=== PATIENT | female | born 1930 | race Caucasian/White ===

== ENCOUNTER → 2018-01-21 | Outpatient (CLI) | payer OTHER | END | disposition home or self-care (01) | LOC: WOUND 13:07 | PROVIDERS: ATTEND Podiatrist Foot & Ankle Surgery | DX: S81.811A Laceration without foreign body, right lower leg, initial encounter (principal); I10 Essential (primary) hypertension; F32.9 Major depressive disorder, single episode, unspecified; E03.9 Hypothyroidism, unspecified; Z90.710 Acquired absence of both cervix and uterus; Z87.891 Personal history of nicotine dependence; Z86.711 Personal history of pulmonary embolism; X58.XXXA Exposure to other specified factors, initial encounter; Y93.89 Activity, other specified; Y92.89 Other specified places as the place of occurrence of the external cause; Y99.8 Other external cause status | CPT/HCPCS: 11042; 99215 ==

== ENCOUNTER → 2018-01-28 | Outpatient (CLI) | payer OTHER | END | disposition home or self-care (01) | LOC: WOUND 13:03 | PROVIDERS: ATTEND Podiatrist Foot & Ankle Surgery | DX: S81.812A Laceration without foreign body, left lower leg, initial encounter (principal); S81.811D Laceration without foreign body, right lower leg, subsequent encounter; I10 Essential (primary) hypertension; F32.9 Major depressive disorder, single episode, unspecified; E03.9 Hypothyroidism, unspecified; Z90.710 Acquired absence of both cervix and uterus; Z87.891 Personal history of nicotine dependence; Z86.711 Personal history of pulmonary embolism; X58.XXXA Exposure to other specified factors, initial encounter; X58.XXXD Exposure to other specified factors, subsequent encounter; Y93.89 Activity, other specified; Y92.89 Other specified places as the place of occurrence of the external cause; Y99.8 Other external cause status | CPT/HCPCS: 11042 ==

== ENCOUNTER → 2018-02-04 | Outpatient (CLI) | payer OTHER | END | disposition home or self-care (01) | LOC: WOUND 13:22 | PROVIDERS: ATTEND Podiatrist Foot & Ankle Surgery | DX: L97.312 Non-pressure chronic ulcer of right ankle with fat layer exposed (principal); L97.221 Non-pressure chronic ulcer of left calf limited to breakdown of skin; I10 Essential (primary) hypertension; F32.9 Major depressive disorder, single episode, unspecified; E03.9 Hypothyroidism, unspecified; Z86.711 Personal history of pulmonary embolism; Z87.891 Personal history of nicotine dependence; Z90.710 Acquired absence of both cervix and uterus; X58.XXXD Exposure to other specified factors, subsequent encounter | CPT/HCPCS: 11042; 97597 ==

== ENCOUNTER → 2018-02-11 | Outpatient (CLI) | payer OTHER | END | disposition home or self-care (01) | LOC: WOUND 14:34 | PROVIDERS: ATTEND Podiatrist Foot & Ankle Surgery | DX: L97.312 Non-pressure chronic ulcer of right ankle with fat layer exposed (principal); L97.221 Non-pressure chronic ulcer of left calf limited to breakdown of skin; I10 Essential (primary) hypertension; F32.9 Major depressive disorder, single episode, unspecified; E03.9 Hypothyroidism, unspecified; Z90.710 Acquired absence of both cervix and uterus; Z87.891 Personal history of nicotine dependence; Z86.711 Personal history of pulmonary embolism | CPT/HCPCS: 11042; 97597 ==

== ENCOUNTER → 2018-02-18 | Outpatient (CLI) | payer OTHER | END | disposition home or self-care (01) | LOC: WOUND 13:00 | PROVIDERS: ATTEND Podiatrist Foot & Ankle Surgery | DX: L97.312 Non-pressure chronic ulcer of right ankle with fat layer exposed (principal); L97.221 Non-pressure chronic ulcer of left calf limited to breakdown of skin; I10 Essential (primary) hypertension; F32.9 Major depressive disorder, single episode, unspecified; E03.9 Hypothyroidism, unspecified; Z90.710 Acquired absence of both cervix and uterus; Z87.891 Personal history of nicotine dependence; Z86.711 Personal history of pulmonary embolism | CPT/HCPCS: 97597 ==

== ENCOUNTER → 2018-02-25 | Outpatient (CLI) | payer OTHER | END | disposition home or self-care (01) | LOC: WOUND 13:10 | PROVIDERS: ATTEND Podiatrist Foot & Ankle Surgery | DX: L97.312 Non-pressure chronic ulcer of right ankle with fat layer exposed (principal); L97.221 Non-pressure chronic ulcer of left calf limited to breakdown of skin; I10 Essential (primary) hypertension; F32.9 Major depressive disorder, single episode, unspecified; E03.9 Hypothyroidism, unspecified; Z90.710 Acquired absence of both cervix and uterus; Z86.711 Personal history of pulmonary embolism; Z87.891 Personal history of nicotine dependence | CPT/HCPCS: 11042; 97597 ==

== ENCOUNTER → 2018-03-04 | Outpatient (CLI) | payer OTHER | END | disposition home or self-care (01) | LOC: WOUND 12:42 | PROVIDERS: ATTEND Podiatrist Foot & Ankle Surgery | DX: L97.312 Non-pressure chronic ulcer of right ankle with fat layer exposed (principal); L97.221 Non-pressure chronic ulcer of left calf limited to breakdown of skin; I10 Essential (primary) hypertension; F32.9 Major depressive disorder, single episode, unspecified; E03.9 Hypothyroidism, unspecified; Z86.711 Personal history of pulmonary embolism; Z87.891 Personal history of nicotine dependence; Z90.710 Acquired absence of both cervix and uterus | CPT/HCPCS: 99213 ==

== ENCOUNTER → 2018-03-11 | Outpatient (CLI) | payer OTHER | END | disposition home or self-care (01) | LOC: WOUND 13:16 | PROVIDERS: ATTEND Podiatrist Foot & Ankle Surgery | DX: L97.312 Non-pressure chronic ulcer of right ankle with fat layer exposed (principal); L97.221 Non-pressure chronic ulcer of left calf limited to breakdown of skin; I10 Essential (primary) hypertension; F32.9 Major depressive disorder, single episode, unspecified; E03.9 Hypothyroidism, unspecified; Z87.891 Personal history of nicotine dependence; Z86.711 Personal history of pulmonary embolism | CPT/HCPCS: 99214 ==

== ENCOUNTER → 2018-03-18 | Outpatient (CLI) | payer OTHER | END | disposition home or self-care (01) | LOC: WOUND 12:58 | PROVIDERS: ATTEND Podiatrist Foot & Ankle Surgery | DX: L97.318 Non-pressure chronic ulcer of right ankle with other specified severity (principal); I10 Essential (primary) hypertension; F32.9 Major depressive disorder, single episode, unspecified; E03.9 Hypothyroidism, unspecified; Z87.891 Personal history of nicotine dependence; Z86.711 Personal history of pulmonary embolism; Z90.710 Acquired absence of both cervix and uterus | CPT/HCPCS: 99214 ==

== ENCOUNTER 2018-08-17 14:18 | Inpatient (IN) | payer MEDICARE, OTHER ==
[~2018-08-17] VITALS: Ht 157.5 cm; Wt 31.5 kg
--- NOTE | 2018-08-17 14:40 | NUR ---
FAMILY AT BEDSIDE. PT EXPERIENCING GENERALIZED WEAKNESS, COUGH AND FALL THIS MORNING. WHEN OXYGEN SATURATION CHECKED AT HOME AND BY MEDICS, 85-88 ON HOME O2.
[2018-08-17] MEDS ORDERED: SODIUM CHLORIDE FLUSH 10ML SYR IVF ONE (15:00)
[2018-08-17 15:04] LABS: BASOPHILS # (AUTO) 0.01 x10^3/uL (0-0.1); BASOPHILS % (AUTO) 0 % (0-1); EOSINOPHILS # (AUTO) 0.01 x10^3/uL (0-0.4); EOSINOPHILS % (AUTO) 0 % (1-7); LYMPHOCYTES # (AUTO) 0.54 x10^3/uL (1-3.4); LYMPHOCYTES % (AUTO) 7 % (22-44); MD NO; MEAN CORPUSCULAR HGB CONC 33.1 g/dL (32.4-35.8); MEAN CORPUSCULAR VOLUME 87.7 fL (80-100); MEAN PLATELET VOLUME 7.5 fL (7.4-10.4); MONOCYTES # (AUTO) 0.48 x10^3/uL (0.2-0.8); MONOCYTES % (AUTO) 7 % (2-9); NEUTROPHILS # (AUTO) 6.22 x10^3/uL (1.8-6.8); NEUTROPHILS % (AUTO) 86 % (42-75); PLATELET COUNT 339 x10^3/uL (130-400); RED BLOOD COUNT 3.49 x10^6/uL (3.82-5.3); RED CELL DISTRIBUTION WIDTH 17.4 % (9.6-15.2)
[2018-08-17 15:16] LABS: ALBUMIN 2.9 g/dL (3.4-5.0); ANION GAP 5 mmol/L (5-15); CALCIUM 8.6 mg/dL (8.5-10.1); CHLORIDE 104 mmol/L (98-107)
[2018-08-17 15:21] LABS: TROPONIN I < 0.015 ng/mL (0.000-0.045)
[2018-08-17] MEDS ORDERED: ALBUTEROL/IPRATROPIUM 2.5MG/0.5MG, 3 ML NPPB ONE (15:30)
[2018-08-17] MEDS ORDERED: FLUO20CA8 PO (16:23)
[2018-08-17] MEDS ORDERED: AMLO10TA8 PO (16:23)
[2018-08-17] MEDS ORDERED: [UNRECOGNIZED DRUG - OTHER] OP (16:23)
[2018-08-17] MEDS ORDERED: TRAM50TA2 PO (16:23)
[2018-08-17] MEDS ORDERED: ERGO2000 PO (16:23)
[2018-08-17] MEDS ORDERED: AMIT10TA PO (16:23)
[2018-08-17] MEDS ORDERED: BUDE3CAP6 PO (16:23)
[2018-08-17] MEDS ORDERED: CARV3.122 PO (16:23)
[2018-08-17] MEDS ORDERED: GABA-827 PO (16:23)
[2018-08-17] MEDS ORDERED: APIX2.5T PO (16:23)
[2018-08-17] MEDS ORDERED: BUSP7.5T3 PO (16:23)
[2018-08-17] MEDS ORDERED: LEVO75TA PO (16:23)
--- NOTE | 2018-08-17 16:24 | NUR ---
TASK RN: PT MEDICTED PER EMAR. PT MED REC COMPLETE.
--- NOTE | 2018-08-17 16:25 | NUR ---
THIS RN COMPLETED MED REC UNDER WRONG USER. MED REC COMPLETED BY THIS RN.
--- NOTE | 2018-08-17 16:25 | NUR ---
TASK RN: PT MEDICTED PER EMAR. PT MED REC COMPLETE.
--- NOTE | 2018-08-17 16:52 | NUR ---
HOSPITALIST AT BEDSIDE
[2018-08-17] MEDS ORDERED: ONDANSETRON 2MG/ML, 2ML IVPush PRN (17:00)
[2018-08-17] MEDS ORDERED: hydrALAzine 20 MG/ML, 1ML IVPush PRN (17:00)
[2018-08-17] MEDS ORDERED: ACETAMINOPHEN 325 MG TABLET PO PRN (17:00)
[2018-08-17] MEDS ORDERED: NITROGLYCERIN 0.4 MG BOTTLE (25 TABS) SL PRN (17:00)
[2018-08-17] MEDS ORDERED: DOCUSATE 100 MG CAPSULE PO PRN (17:00)
[2018-08-17] MEDS ORDERED: AZITHROMYCIN 500 MG TABLET ONE (17:02)
[2018-08-17] MEDS: AZITHROMYCIN 500 MG TABLET PO SCH (17:04)
--- NOTE | 2018-08-17 17:25 | NUR ---
UOB TO COMMODE WITH ASSISTANCE. DAUGHTER REMAINS AT BEDSIDE. PT'S BREATHING EVEN AND UNLABORED
[2018-08-17 17:26] LABS: ABSOLUTE RETICS # 0.035 x10^6/uL (0.5-2.5); RED BLOOD COUNT 3.5 x10^6/uL (3.82-5.3); RETICULOCYTE COUNT % 0.99 % (0.5-1.5)
--- NOTE | 2018-08-17 17:41 | NUR ---
REPORT TO MANNY XIAO
[2018-08-17 20:00] VITALS: BP 139/61
[2018-08-17] MEDS ORDERED: LORazepam 0.5MG TABLET PO ONE (20:30)
[2018-08-17] MEDS: GUAIFENESIN 200 MG TABLET PO SCH (21:43)
[2018-08-17] MEDS: APIXABAN 2.5 MG TABLET PO SCH (21:44)
[2018-08-17] MEDS: AMITRIPTYLINE 10 MG TABLET PO SCH (21:44)
[2018-08-17] MEDS: GABAPENTIN 300 MG CAPSULE PO SCH (21:44)
[2018-08-17] MEDS: CARVEDILOL 12.5 MG TABLET PO SCH (21:44)
[2018-08-18 02:00] VITALS: BP 143/67
[2018-08-18 05:27] LABS: BASOPHILS % (AUTO) 0 % (0-1); EOSINOPHILS % (AUTO) 0 % (1-7); LYMPHOCYTES # (AUTO) 0.33 x10^3/uL (1-3.4); LYMPHOCYTES % (AUTO) 7 % (22-44); MD NO; MEAN CORPUSCULAR HEMOGLOBIN 28.8 pg (27.0-34.8); MEAN CORPUSCULAR HGB CONC 33.2 g/dL (32.4-35.8); MEAN CORPUSCULAR VOLUME 86.9 fL (80-100); MEAN PLATELET VOLUME 7.6 fL (7.4-10.4); MONOCYTES # (AUTO) 0.09 x10^3/uL (0.2-0.8); MONOCYTES % (AUTO) 2 % (2-9); NEUTROPHILS # (AUTO) 4.39 x10^3/uL (1.8-6.8); NEUTROPHILS % (AUTO) 92 % (42-75); PLATELET COUNT 343 x10^3/uL (130-400); RED CELL DISTRIBUTION WIDTH 17.4 % (9.6-15.2)
[2018-08-18 05:34] LABS: ANION GAP 9 mmol/L (5-15); CHLORIDE 105 mmol/L (98-107)
[2018-08-18 05:37] LABS: CALCIUM 8.4 mg/dL (8.5-10.1); CREATININE 0.68 mg/dL (0.55-1.02)
[2018-08-18] MEDS: LEVOTHYROXINE 75 MCG TABLET PO SCH (06:15)
[2018-08-18] MEDS: GUAIFENESIN 200 MG TABLET PO SCH ×4 (06:15→20:05)
[2018-08-18 07:57] VITALS: BP 158/56
[2018-08-18] MEDS ORDERED: ERGOCALCIFEROL 50,000 UNIT CAPSULE PO SCH (09:00)
[2018-08-18] MEDS ORDERED: BUSPIRONE PO SCH (09:00)
[2018-08-18] MEDS ORDERED: GABAPENTIN 400 MG CAPSULE PO SCH (09:00)
[2018-08-18] MEDS: LATANOPROST OPHTH 0.005%, 2.5ML OP SCH (09:00)
[2018-08-18 09:16] LABS: OCCULT BLOOD NEGATIVE (NEGATIVE)
[2018-08-18] MEDS: AMLODIPINE 2.5 MG TABLET PO SCH (10:02)
[2018-08-18] MEDS: APIXABAN 2.5 MG TABLET PO SCH ×2 (10:02→20:05)
[2018-08-18] MEDS: AZITHROMYCIN 500 MG TABLET PO SCH (10:02)
[2018-08-18] MEDS: FLUOXETINE HCL 20 MG CAPSULE PO SCH (10:03)
[2018-08-18] MEDS: PANTOPROZOLE 40MG TABLET PO SCH (10:03)
[2018-08-18] MEDS: GABAPENTIN 100 MG CAPSULE PO SCH (10:03)
[2018-08-18] MEDS: CARVEDILOL 12.5 MG TABLET PO SCH ×2 (10:03→20:06)
[2018-08-18 12:06] VITALS: BP 155/67
[2018-08-18] MEDS ORDERED: DIPHENOXYLATE/ATROPINE TABLET PO PRN (14:30)
[2018-08-18] MEDS: LACTOBACILLUS CHEW TABLET PO SCH ×2 (16:00→20:05)
[2018-08-18] MEDS ORDERED: LORazepam 0.5MG TABLET PO PRN (17:00)
[2018-08-18 20:00] VITALS: BP 147/73
[2018-08-18] MEDS: AMITRIPTYLINE 10 MG TABLET PO SCH (20:05)
[2018-08-18] MEDS: GABAPENTIN 300 MG CAPSULE PO SCH (20:05)
[2018-08-19 02:00] VITALS: BP 134/63
[2018-08-19] MEDS: LEVOTHYROXINE 75 MCG TABLET PO SCH (05:26)
[2018-08-19] MEDS: GUAIFENESIN 200 MG TABLET PO SCH (05:26)
[2018-08-19 07:29] VITALS: BP 169/78
[2018-08-19] MEDS: LACTOBACILLUS CHEW TABLET PO SCH (08:04)
[2018-08-19] MEDS: AZITHROMYCIN 500 MG TABLET PO SCH (08:04)
[2018-08-19] MEDS: PANTOPROZOLE 40MG TABLET PO SCH (08:05)
[2018-08-19] MEDS: FLUOXETINE HCL 20 MG CAPSULE PO SCH (08:05)
[2018-08-19] MEDS: AMLODIPINE 2.5 MG TABLET PO SCH (08:05)
[2018-08-19] MEDS: CARVEDILOL 12.5 MG TABLET PO SCH (08:05)
[2018-08-19] MEDS: GABAPENTIN 100 MG CAPSULE PO SCH (08:05)
[2018-08-19] MEDS: APIXABAN 2.5 MG TABLET PO SCH (08:05)
[2018-08-19] MEDS ORDERED: LORazepam 0.5MG TABLET PO ONE (08:30)
[2018-08-19] MEDS ORDERED: PRED10TA PO (08:52)
[2018-08-19] MEDS ORDERED: AZIT500T5 PO (08:52)
[2018-08-19] MEDS ORDERED: GUAI200T3 PO (08:52)
[2018-08-19] MEDS ORDERED: ALBU8.5H8 IH (08:53)
[2018-08-19] MEDS: LATANOPROST OPHTH 0.005%, 2.5ML OP SCH (09:00)
== END 2018-08-19 12:15 | disposition home or self-care (01) | DRG 189 ==
LOC: ED 16:00 → EDIP 16:01 → ED 16:22 → 3NE 17:53 → DCLOUNGE 08-19 12:07
PROVIDERS: ADMIT Hospitalist; ATTEND Hospitalist
DX: J96.21 Acute and chronic respiratory failure with hypoxia (principal); J44.1 Chronic obstructive pulmonary disease with (acute) exacerbation; D64.9 Anemia, unspecified; E03.9 Hypothyroidism, unspecified; F17.210 Nicotine dependence, cigarettes, uncomplicated; F32.9 Major depressive disorder, single episode, unspecified; G62.9 Polyneuropathy, unspecified; I11.0 Hypertensive heart disease with heart failure; I50.9 Heart failure, unspecified; K44.9 Diaphragmatic hernia without obstruction or gangrene; Z88.2 Allergy status to sulfonamides; W18.39XA Other fall on same level, initial encounter; Y93.89 Activity, other specified; Y92.89 Other specified places as the place of occurrence of the external cause; Y99.8 Other external cause status; Z79.01 Long term (current) use of anticoagulants; Z82.0 Family history of epilepsy and other diseases of the nervous system; Z86.711 Personal history of pulmonary embolism; Z90.710 Acquired absence of both cervix and uterus
CPT/HCPCS: 36415; 71045; 80048; 82040; 82272; 82728; 83540; 83550; 83735; 83880; 84484; 85025; 85045; 93005; 94640; 99285; G0378; J7620; J7512